=== PATIENT | male | born 1950 | race Caucasian/White ===

== ENCOUNTER 2020-12-27 15:16 | Emergency (ER) | payer MEDICARE, OTHER ==
[2020-12-27 15:55] LABS: BASOPHIL 0.8 % (0-2); EOSINOPHIL 0 % (0-7); HCT 37.9 % (42.0-52.0); HGB 12.5 g/dl (13.2-18.0); LYMPHOCYTE 22.2 % (15-48); MCH 29.7 pg (25.0-31.0); MONOCYTE 11.5 % (0-12); MPV 10.1 fL (6.0-9.5); NEUTROPHIL 65.2 % (41-80); NRBC 0; PLT 236 K/uL (150-400); RBC 4.21 M/uL (4.70-6.00); RDW 12.7 % (11.5-14.0); WBC 7.4 K/uL (4.0-10.5)
[2020-12-27 16:11] LABS: ALBUMIN 3.4 g/dL (3.4-5.0); BILIRUBIN - TOTAL 0.3 mg/dL (0.2-1.0); CREATININE 0.94 mg/dL (0.67-1.17); GLOBULIN (CALCULATION) 3.7 g/dL; POTASSIUM 4.4 mmol/L (3.5-5.1); TOTAL PROTEIN 7.1 g/dL (6.4-8.2)
[2020-12-27] MEDS ORDERED: KEFLEX250 MG PO (16:38)
== END 2020-12-27 16:48 | disposition home or self-care (01) ==
LOC: FER 15:16
PROVIDERS: Emergency Medicine
DX: L03.116 Cellulitis of left lower limb (principal); M25.572 Pain in left ankle and joints of left foot; E11.9 Type 2 diabetes mellitus without complications; Z79.84 Long term (current) use of oral hypoglycemic drugs
CPT/HCPCS: 36415; 80053; 85025; 93971; J0696